=== PATIENT | female | born 1970 | race Caucasian/White ===

== ENCOUNTER 2022-07-03 14:50 | Outpatient (CLI) | payer BC | END 2022-07-03 14:51 | disposition home or self-care (01) | LOC: DTY/OP 14:50 | PROVIDERS: ATTEND Surgery | DX: E66.01 Morbid (severe) obesity due to excess calories (principal) | CPT/HCPCS: 97802 ==

== ENCOUNTER 2022-07-31 12:57 | Outpatient (CLI) | payer BC | END 2022-07-31 12:58 | disposition home or self-care (01) | LOC: DTY/OP 12:57 | PROVIDERS: ATTEND Surgery | DX: E66.01 Morbid (severe) obesity due to excess calories (principal) | CPT/HCPCS: 97802 ==

== ENCOUNTER 2022-08-30 14:17 | Outpatient (CLI) | payer BC | END 2022-08-30 14:18 | disposition home or self-care (01) | LOC: DTY/OP 14:17 | PROVIDERS: ATTEND Surgery | DX: E66.01 Morbid (severe) obesity due to excess calories (principal) | CPT/HCPCS: 97802 ==